=== PATIENT | female | born 1960 | race Caucasian/White ===

== ENCOUNTER 2016-12-10 10:39 | Emergency (ER) | payer OTHER ==
[~2016-12-10] VITALS: Ht 165.1 cm; Wt 86.3 kg
[~2016-12-10 10:39] MED LIST: ASPIR 8181 M1 PO; METOPROLOL SUCC25 MG PO; NAPROXEN375 MG PO; PREDNISONE20 MG PO; VENTOLIN HFA18 GM IH; ZOLOFT50 MG PO
[2016-12-10 16:13] LABS: ADD MIUA? YES; BILIRUBIN NEGATIVE; BLOOD MODERATE; GLUCOSE (STRIP) NEGATIVE; KETONES NEGATIVE; LEUKOCYTES LARGE; NITRITE POSITIVE; PROTEIN (STRIP) 100; SPECIFIC GRAVITY 1.008 (1.000-1.030); UROBILINOGEN 0.2 MG/DL (0.2-1.0)
[2016-12-10 16:16] LABS: COLOR YELLOW ((YELLOW))
[2016-12-10 16:30] LABS: UCUL ADDED? YES; WHITE BLOOD CELLS TNTC /HPF (0-5)
[2016-12-10] MEDS ORDERED: LEVAQUIN500 MG PO (17:07)
[2016-12-10] MEDS ORDERED: PERCOCET 5/31 TABLET PO (17:09)
[2016-12-10 17:33] VITALS: BP 92/68
== END 2016-12-10 17:48 | disposition home or self-care (01) ==
LOC: EME 10:39
PROVIDERS: Emergency Medicine
DX: M48.56XA Collapsed vertebra, not elsewhere classified, lumbar region, initial encounter for fracture (principal); N39.0 Urinary tract infection, site not specified; Z87.820 Personal history of traumatic brain injury; Z79.82 Long term (current) use of aspirin; F17.200 Nicotine dependence, unspecified, uncomplicated
CPT/HCPCS: 72131; 81003; 87086 GA; 99281; 99285; J0696; J2270

== ENCOUNTER 2016-12-21 21:56 | Emergency (ER) | payer OTHER ==
[~2016-12-21] VITALS: Ht 172.7 cm; Wt 76.8 kg
[~2016-12-21 21:56] MED LIST changes: +LEVAQUIN500 MG PO; +PERCOCET 5/31 TABLET PO
[2016-12-21 23:13] LABS: HEMATOCRIT 35.7 % (36.0-46.0); MCH 30.7 PG (29.0-34.0); MCHC 33.1 G/DL (30.0-36.0); MEAN PLAT.VOLUME 9.4 uM^3 (9.5-12.4); PLATELET COUNT 250 K/uL (156-360); RBC DIS.WIDTH-CV 12.6 % (11.8-14.6); RBC DIS.WIDTH-SD 43.4 % (39-53); RED BLOOD COUNT 3.84 M/uL (3.80-5.20); WHITE BLOOD COUNT 8.4 K/uL (4.1-10.2)
[2016-12-21 23:22] LABS: CHLORIDE 101 mEq/L (99-109); POTASSIUM 3.7 mEq/L (3.7-5.4); SODIUM 135 mEq/L (136-147)
[2016-12-21 23:24] LABS: GLUCOSE 89 mg/dL (70-99)
[2016-12-21 23:26] LABS: ANION GAP 9 MEQ/L (2-14)
[2016-12-21 23:28] LABS: GFR ESTIMATE (CALCULATED) > 59 mL/min/
[2016-12-21 23:29] LABS: UREA NITROGEN (BUN) 5 mg/dL (9-23)
[2016-12-21 23:31] LABS: CREATINE KINASE 108 IU/L (1-294); TOTAL CK 108 IU/L (1-294)
[2016-12-21 23:36] LABS: CK-MB 1.6 ng/mL (0.0-4.9)
[2016-12-21 23:37] LABS: TROP-I INTERPRETATION NEGATIVE; TROPONIN-I < 0.01 ng/mL (0.0-0.30)
[2016-12-22 00:04] LABS: ADD MIUA? YES; BILIRUBIN NEGATIVE; BLOOD MODERATE; COLOR YELLOW ((YELLOW)); GLUCOSE (STRIP) NEGATIVE; KETONES NEGATIVE; LEUKOCYTES LARGE; NITRITE NEGATIVE; PROTEIN (STRIP) 30; SPECIFIC GRAVITY 1.006 (1.000-1.030); UROBILINOGEN 0.2 MG/DL (0.2-1.0)
[2016-12-22 00:26] LABS: BACTERIA 3+ /HPF; CASTS NONE SEEN /LPF; CRYSTALS NONE SEEN; EPITHELIAL CELLS 1+ /HPF; MUCUS 2+ /LPF; UCUL ADDED? YES; WHITE BLOOD CELLS TNTC /HPF (0-5)
[2016-12-22 03:11] VITALS: BP 117/71
== END 2016-12-22 03:11 | disposition short-term general hospital (02) ==
LOC: EME → EDBD 21:56 → EME 12-22 03:11
PROVIDERS: Emergency Medicine
DX: G83.4 Cauda equina syndrome (principal); S32.011A Stable burst fracture of first lumbar vertebra, initial encounter for closed fracture; R29.6 Repeated falls; Z87.820 Personal history of traumatic brain injury; F17.200 Nicotine dependence, unspecified, uncomplicated
CPT/HCPCS: 71010; 80048; 81003; 82550; 82553; 83605; 84484; 85027; 87040; 87086; 87106; 99281; 99285; J1885; J2270; J7030